=== PATIENT | male | born 1985 | race Two or more races ===

== ENCOUNTER 2022-02-08 06:48 | Emergency (ER) | payer SELFPAY ==
[2022-02-08 07:41] LABS: CARBON DIOXIDE,CO2 23.8 mmol/L (21.0-32.0); POTASSIUM,K 3.1 mmol/L (3.5-5.1)
[2022-02-08 07:53] LABS: CORONAVIRUS COVID-19 NAA NEGATIVE (NEGATIVE); INFLUENZA A NAA NEGATIVE (NEGATIVE); INFLUENZA B NAA NEGATIVE (NEGATIVE)
== END 2022-02-08 08:12 | disposition home or self-care (01) ==
LOC: MW.ED 06:48
DX: J02.8 Acute pharyngitis due to other specified organisms (principal); I10 Essential (primary) hypertension; Z20.822 Contact with and (suspected) exposure to COVID-19
CPT/HCPCS: 0240U; 36415; 80053; 84484; 85025; 87651; 99283